=== PATIENT | male | born 1960 | race Hispanic/Latino ===

== ENCOUNTER 2021-02-18 17:33 | Emergency (ER) | payer BC ==
[2021-02-18 18:15] VITALS: BP 145/92
[2021-02-18] MEDS ORDERED: KETOROLAC 30 MG/1 ML INJ IV ONE (18:34)
--- NOTE | 2021-02-18 18:38 | Emergency Department Report ---
ED General Adult HPI - General Chief complaint: Back Pain/Injury Stated complaint: BACK PAIN Source: patient Mode of arrival: Ambulatory Limitations: No Limitations - History of Present Illness Initial comments: patient presents with abrupt onset of right flank pain. It was a sharp and stabbing pain. So far, the pain does not radiate or migrate. It started just earlier today. He states that the pain is severe. He is never had pain like this before. He has no trauma. There is no fevers or chills. Patient denies cough or congestion. He does report urinary urgency but no hematuria. Nephrectomy was told him that it could be kidney stone. He decided to come here for evaluation. He is never had kidney stones before. Patient denies abdominal pain associated with this. He has not taken anything yet for pain. It is worse with movement. - Related Data Previous Rx's Medication Instructions Recorded Last Taken Type HYDROcodone/APAP 5-325 [Roscoe 1 each PO Q6HR PRN #14 tablet 02/18/21 Unknown Rx 5/325] ED Review of Systems ROS: Stated complaint: BACK PAIN Other details as noted in HPI Comment: All other systems reviewed and negative Constitutional: denies: fever Eyes: denies: eye pain ENT: denies: throat pain Respiratory: denies: cough Cardiovascular: denies: chest pain Endocrine: denies: unexplained weight loss Gastrointestinal: denies: abdominal pain Genitourinary: as per HPI Musculoskeletal: as per HPI Skin: denies: rash Neurological: denies: headache Hematological/Lymphatic: denies: easy bruising ED Past Medical Hx - Past Medical History Previous Medical History?: Yes Hx Hypertension: Yes Hx GERD: Yes - Surgical History Past Surgical History?: No - Family History Family history: other ( Negative for AAA) - Social History Smoking Status: Never Smoker Substance Use Type: None - Medications Home Medications: Home Medications Medication Instructions Recorded Confirmed Last Taken Type HYDROcodone/APAP 5-325 [Roscoe 1 each PO Q6HR PRN #14 tablet 02/18/21 Unknown Rx 5/325] ED Physical Exam - General Limitations: No Limitations, Other ( pulse ox is normal at 98% on room air) General appearance: alert, in no apparent distress - Head Head exam: Present: atraumatic, normocephalic, normal inspection - Eye Eye exam: Present: normal appearance, EOMI. Absent: scleral icterus - ENT ENT exam: Present: normal exam, normal orophraynx, mucous membranes moist - Neck Neck exam: Present: normal inspection. Absent: meningismus - Respiratory Respiratory exam: Present: normal lung sounds bilaterally. Absent: respiratory distress - Cardiovascular Cardiovascular Exam: Present: regular rate, normal rhythm - GI/Abdominal GI/Abdominal exam: Present: soft. Absent: tenderness - Extremities Exam Extremities exam: Present: normal capillary refill. Absent: pedal edema - Back Exam Back exam: Present: CVA tenderness (R). Absent: CVA tenderness (L) - Neurological Exam Neurological exam: Present: alert, oriented X3, normal gait. Absent: motor sensory deficit - Psychiatric Psychiatric exam: Present: normal affect, normal mood - Skin Skin exam: Present: warm, dry ED Course Vital Signs 02/18/21 02/18/21 18:12 18:15 Temperature 98.4 F Pulse Rate 72 Respiratory 18 Rate Blood Pressure 145/92 [Right] O2 Sat by Pulse 98 Oximetry - Reevaluation(s) Reevaluation #1: 02/18/21 18:37 IV and labs ordered. Reevaluation #2: 02/18/21 20:49 Work-up was complete. I had a discussion with the patient regarding his abno rmal CT findings including incidental findings. UA was noted. Does not have evidence of nitrite infection. He can be treated symptomatically with analgesics and referred for outpatient evaluation and follow-up. He may or may not pass the stone. This has been discussed with him. There is no evidence of acute infected stone. ED Medical Decision Making - Lab Data Result diagrams: 02/18/21 18:57 - Medical Decision Making Patient presents secondary to flank pain. Is evidence of ureteral colic. T here is also a liver mass and other abnormal findings on the CT that will benefit from outpatient work-up. He does not need emergent CT at this time. Patient does not have evidence of an infected stone. He does not have pyelonephritis. There is no evidence of kidney injury. We will treat sympto matically and referred for outpatient evaluation and follow-up. Critical care attestation.: If time is entered above; I have spent that time in minutes in the direct care of this critically ill patient, excluding procedure time. ED Disposition Clinical Impression: Ureteral colic, Liver mass, Abnormal CT of the abdomen Disposition: HOME / SELF CARE / HOMELESS Is pt being admited?: No Does the pt Need Aspirin: No Condition: Stable Instructions: Low-Purine Eating Plan, Renal Colic, [id number], Incidental Abnormal Radiological Finding Additional Instructions: Drink plenty water. Strain the urine. Return for problems. Follow-up with a urologist and a family doctor. Follow-up with your family doctor for further CT evaluation of your abnormal findings. Prescriptions: HYDROcodone/APAP 5-325 [Roscoe 5/325] 1 each PO Q6HR PRN #14 tablet PRN Reason: Pain Referrals: PRIMARY CARE, [Primary Care Provider] - 3-5 Days IRASEMA SALDAÑA MD [Staff Physician] - 3-5 Days
--- NOTE | 2021-02-18 19:14 | Cat Scan Report ---
CT ABDOMEN AND PELVIS WITHOUT CONTRAST INDICATION / CLINICAL INFORMATION: Right kidney stone. TECHNIQUE: Axial CT images were obtained through the abdomen and pelvis without IV contrast. All CT scans at this location are performed using CT dose reduction for ALARA by means of automated exposure control. COMPARISON: None available. FINDINGS: LOWER CHEST: There is a multilobe density measuring up to 1.9 cm. There are multiple subpleural nodul es within the bilateral lung bases. Multiple calcified hilar lymph nodes are noted. AORTA / ARTERIES: No significant abnormality. IVC / VEINS: No significant abnormality. LYMPH NODES: No significant adenopathy. COLON: Diverticulosis without acute inflammation. APPENDIX: No significant abnormality. STOMACH / SMALL BOWEL: No significant abnormality. PERITONEUM: No free fluid. No free air. No fluid collection. There is minimal mesenteric fat strandin g. LIVER: No significant abnormality. GALLBLADDER: No significant abnormality. BILE DUCTS: No significant abnormality. PANCREAS: No significant abnormality. SPLEEN: No significant abnormality. ADRENALS: No significant abnormality. RIGHT KIDNEY / URETER: There is an 8 mm stone at the right ureterovesicular junction. No hydronephros is or hydroureter. LEFT KIDNEY / URETER: No significant abnormality. URINARY BLADDER: No significant abnormality. REPRODUCTIVE ORGANS: No significant abnormality. SKELETAL SYSTEM: Scattered degeneration ADDITIONAL FINDINGS: None. IMPRESSION: 1. There is an 8 mm nonobstructing stone at the right ureterovesicular junction. 2. There is a 1.9 cm multilobe density involving the right middle lobe. There are additional subpleur al lymph nodes along the bilateral lung bases. Noncontrast CT of the chest is recommended for further evaluation. Signer Name: Tiburcio Stratton DO Signed: 02/18/2021 7:09 PM Workstation Name: [id number]
[2021-02-18 19:38] LABS: BUN/Creatinine Ratio 15; Blood Urea Nitrogen 15 mg/dL (9-20); Calcium 9.5 mg/dL (8.4-10.2); Hemolysis Index 7
[2021-02-18 20:08] LABS: Bilirubin,Urine NEG (Negative); Blood,Urine LG (Negative); Color,Urine Yellow (Yellow); Mucus,Urine 2+ /HPF; Urobilinogen,Urine < 2.0 mg/dL (<2.0)
== END 2021-02-18 22:00 | disposition home or self-care (01) ==
LOC: ED 17:33
DX: N23 Unspecified renal colic (principal); R16.0 Hepatomegaly, not elsewhere classified; R93.5 Abnormal findings on diagnostic imaging of other abdominal regions, including retroperitoneum; I10 Essential (primary) hypertension; K21.9 Gastro-esophageal reflux disease without esophagitis
CPT/HCPCS: 36415; 74176; 80048; 81001; 99284